=== PATIENT | female | born 1995 | race Two or more races ===

== ENCOUNTER 2017-12-19 20:51 | Outpatient (CLI) | payer OTHER, SELFPAY ==
[2017-12-19 21:50] LABS: APPEARANCE, URINE HAZY (CLEAR); BACTERIA, URINE AUTO NEGATIVE (NEGATIVE); BILIRUBIN, URINE AUTO NEGATIVE (NEGATIVE); BLOOD, URINE BLOOD 2+ (NEGATIVE); COLOR, URINE YELLOW (YELLOW); GLUCOSE, URINE (UA) AUTO NEGATIVE (NEGATIVE); KETONE, URINE AUTO NEGATIVE (NEGATIVE); LEUKOCYTE ESTERASE, URINE AUTO NEGATIVE (NEGATIVE); NITRITE, URINE AUTO NEGATIVE (NEGATIVE); PROTEIN, URINE AUTO NEGATIVE (NEGATIVE); RBC, URINE AUTO 180 /HPF (0-3); SPECIFIC GRAVITY URINE AUTO 1.015 (1.002-1.035); SQUAMOUS EPITHELIAL CELL UR AU 2 /HPF (0-6); UROBILINOGEN, URINE AUTO 0.2 mg/dL (0.0-2.0); WBC, URINE AUTO 2 /HPF (0-3)
[2017-12-19] MEDS: SODIUM CHLORIDE 0.9% 1000ML IV (22:45)
[2017-12-19] MEDS ORDERED: ceFAZolin 1GM INJ (J0690 PER 500MG) IV ×2 (22:45)
[2017-12-19] MEDS: SODIUM CHLORIDE 0.9% 1000 ML IV (22:45)
[2017-12-19] MEDS ORDERED: NS 1,000 ML IV ×2 (23:00)
[2017-12-19] MEDS ORDERED: ceFAZolin 2 GM/D5W 50 ML IV BAG (J0690 PER 500MG) As Ordered ×2 (23:41)
== END 2017-12-20 01:00 | disposition home or self-care (01) ==
LOC: M LDO 20:51
DX: O99.89 Other specified diseases and conditions complicating pregnancy, childbirth and the puerperium (principal); Z3A.36 36 weeks gestation of pregnancy; O23.43 Unspecified infection of urinary tract in pregnancy, third trimester; R31.9 Hematuria, unspecified
CPT/HCPCS: J0690

== ENCOUNTER 2017-12-21 19:17 | Outpatient (CLI) | payer OTHER, SELFPAY ==
[2017-12-21] MEDS: LR 1,000 ML IV (22:11)
[2017-12-21 22:27] LABS: HEMATOCRIT 33.9 % (36.0-47.0); HEMOGLOBIN 11.5 g/dl (12.0-15.5); MEAN CORPUSCULAR HEMOGLOBIN 30.2 pg (27.0-33.0); MEAN CORPUSCULAR HGB CONC 33.9 g/dl (32.0-36.5); PLATELET COUNT, AUTOMATED 255 10^3/uL (150-450); RED BLOOD COUNT 3.81 10^6/uL (4.00-5.40); RED CELL DISTRIBUTION WIDTH 13.2 % (11.5-14.5); WHITE BLOOD COUNT 9.8 10^3/uL (4.0-10.0)
[2017-12-21] MEDS: ONDANSETRON 4MG/2ML VIAL (J2405) IV (22:36)
[2017-12-21 22:53] LABS: ALBUMIN 2.6 GM/DL (3.2-5.2); ALBUMIN/GLOBULIN RATIO 0.67 (1.00-1.93); ALKALINE PHOSPHATASE 133 U/L (45-117); ALT/SGPT 14 U/L (12-78); ANION GAP 12 MEQ/L (8-16); AST/SGOT 13 U/L (7-37); BILIRUBIN,TOTAL 0.2 MG/DL (0.2-1.0); BLOOD UREA NITROGEN 10 MG/DL (7-18); CALCIUM LEVEL 8.2 MG/DL (8.5-10.1); CARBON DIOXIDE LEVEL 22 MEQ/L (21-32); CHLORIDE LEVEL 108 MEQ/L (98-107); CREATININE FOR GFR 0.53 MG/DL (0.55-1.30); GLOMERULAR FILTRATION RATE > 60.0 (>60); GLUCOSE, FASTING 84 MG/DL (70-100); POTASSIUM SERUM 4.5 MEQ/L (3.5-5.1); SODIUM LEVEL 142 MEQ/L (136-145); TOTAL PROTEIN 6.5 GM/DL (6.4-8.2)
== END 2017-12-22 00:37 | disposition home or self-care (01) ==
LOC: M LDO 19:17
DX: O26.893 Other specified pregnancy related conditions, third trimester (principal); M54.5 Low back pain; O21.9 Vomiting of pregnancy, unspecified; O26.833 Pregnancy related renal disease, third trimester; N13.30 Unspecified hydronephrosis; Z3A.36 36 weeks gestation of pregnancy
CPT/HCPCS: J2405

== ENCOUNTER 2018-01-30 14:46 | Inpatient (IN) | payer OTHER ==
[2018-01-30 15:34] LABS: KETONE, URINE AUTO RFX NEGATIVE (NEGATIVE); LEUKOCYTE ESTERASE UR AUTO RFX 3+ (NEGATIVE); NITRITE, URINE AUTO RFX POSITIVE (NEGATIVE); RBC, URINE AUTO RFX 31 /HPF (0-3); SPECIFIC GRAVITY UR AUTO RFX 1.014 (1.002-1.035); SQUAM EPITHELIAL CELL UR AURFX 2 /HPF (0-6); WBC, URINE AUTO RFX TNTC /HPF (0-3)
[2018-01-30] MEDS: ACETAMINOPHEN 325 MG TAB PO (17:08)
[2018-01-30] MEDS: NS 1,000 ML IV ×3 (17:21→22:55)
[2018-01-30] MEDS: ONDANSETRON 4MG/2ML VIAL (J2405) IV (17:21)
[2018-01-30 17:34] LABS: BASO # 0.1 10^3/uL (0.0-0.2); BASO % 0.3 % (0.0-1.0); HEMATOCRIT 33.7 % (36.0-47.0); HEMOGLOBIN 11.6 g/dl (12.0-15.5); IMMATURE GRANULOCYTE % 0.4 % (0-3.0); LYMPH # 2.4 10^3/uL (1.5-6.5); LYMPH % 11.7 % (24.0-44.0); MEAN CORPUSCULAR HEMOGLOBIN 29.8 pg (27.0-33.0); MEAN CORPUSCULAR HGB CONC 34.4 g/dl (32.0-36.5); MEAN CORPUSCULAR VOLUME 86.6 fl (80.0-96.0); MONO # 1.8 10^3/uL (0.0-0.8); NEUTROPHILS # 15.8 10^3/uL (1.8-7.7); NEUTROPHILS % 78.6 % (36.0-66.0); PLATELET COUNT, AUTOMATED 392 10^3/uL (150-450); RED BLOOD COUNT 3.89 10^6/uL (4.00-5.40); RED CELL DISTRIBUTION WIDTH 14.2 % (11.5-14.5); WHITE BLOOD COUNT 20.1 10^3/uL (4.0-10.0)
[2018-01-30 17:58] LABS: ALBUMIN 2.7 GM/DL (3.2-5.2); ALBUMIN/GLOBULIN RATIO 0.54 (1.00-1.93); ALKALINE PHOSPHATASE 116 U/L (45-117); ALT/SGPT 26 U/L (12-78); ANION GAP 11 MEQ/L (8-16); AST/SGOT 14 U/L (7-37); BILIRUBIN,TOTAL 0.5 MG/DL (0.2-1.0); BLOOD UREA NITROGEN 16 MG/DL (7-18); CALCIUM LEVEL 8.3 MG/DL (8.5-10.1); CARBON DIOXIDE LEVEL 21 MEQ/L (21-32); CHLORIDE LEVEL 107 MEQ/L (98-107); GLOMERULAR FILTRATION RATE > 60.0 (>60); GLUCOSE, FASTING 116 MG/DL (70-100); LIPASE 154 U/L (73-393); POTASSIUM SERUM 3.8 MEQ/L (3.5-5.1); SODIUM LEVEL 139 MEQ/L (136-145); TOTAL PROTEIN 7.7 GM/DL (6.4-8.2)
[2018-01-30 18:17] LABS: KETONE, URINE AUTO RFX NEGATIVE (NEGATIVE); MUCUS, URINE RFX SMALL (NEGATIVE); RBC, URINE AUTO RFX 17 /HPF (0-3); SPECIFIC GRAVITY UR AUTO RFX 1.014 (1.002-1.035); SQUAM EPITHELIAL CELL UR AURFX 0 /HPF (0-6)
[2018-01-30 18:21] LABS: LEUKOCYTE ESTERASE UR AUTO RFX 3+ (NEGATIVE); NITRITE, URINE AUTO RFX POSITIVE (NEGATIVE); WBC, URINE AUTO RFX TNTC /HPF (0-3)
[2018-01-30] MEDS ORDERED: ISOVUE-370 76% 100ML VIAL (Q9967) As Ordered (18:22)
[2018-01-30] MEDS: cefTRIAXone SOD 1 GM in D5W MINI-BAG PLUS 50 ML IV (20:12)
[2018-01-30] MEDS ORDERED: BISACODYL 5 MG TAB PO (21:15)
[2018-01-30] MEDS ORDERED: ONDANSETRON 4 MG TAB (S0181) PO (21:15)
[2018-01-30] MEDS ORDERED: BISACODYL 10 MG SUPP PR (21:15)
[2018-01-30] MEDS: ACETAMINOPHEN TAB 650MG DOSE (2X325MG) PO (23:04)
[2018-01-31] MEDS: NS 1,000 ML IV ×4 (04:15→16:02)
[2018-01-31] MEDS: HEPARIN SOD (PORCINE) 5000 UNITS/ML VIAL SC ×3 (05:52→21:48)
[2018-01-31 07:56] LABS: HEMATOCRIT 31.7 % (36.0-47.0); HEMOGLOBIN 10.6 g/dl (12.0-15.5); MEAN CORPUSCULAR HEMOGLOBIN 29.9 pg (27.0-33.0); MEAN CORPUSCULAR HGB CONC 33.4 g/dl (32.0-36.5); MEAN CORPUSCULAR VOLUME 89.3 fl (80.0-96.0); PLATELET COUNT, AUTOMATED 326 10^3/uL (150-450); RED BLOOD COUNT 3.55 10^6/uL (4.00-5.40); RED CELL DISTRIBUTION WIDTH 14.3 % (11.5-14.5); WHITE BLOOD COUNT 12.6 10^3/uL (4.0-10.0)
[2018-01-31 08:17] LABS: ANION GAP 8 MEQ/L (8-16); BLOOD UREA NITROGEN 11 MG/DL (7-18); CARBON DIOXIDE LEVEL 23 MEQ/L (21-32); CHLORIDE LEVEL 114 MEQ/L (98-107); CREATININE FOR GFR 0.82 MG/DL (0.55-1.30); GLOMERULAR FILTRATION RATE > 60.0 (>60); GLUCOSE, FASTING 101 MG/DL (70-100); SODIUM LEVEL 145 MEQ/L (136-145)
[2018-01-31] MEDS: ACETAMINOPHEN TAB 650MG DOSE (2X325MG) PO (13:08)
[2018-01-31] MEDS: TAMSULOSIN 0.4 MG CAP PO (17:23)
[2018-01-31] MEDS: cefTRIAXone SOD 1 GM in D5W MINI-BAG PLUS 50 ML IV (21:47)
[2018-02-01] MEDS: NS 1,000 ML IV (03:05)
[2018-02-01] MEDS: HEPARIN SOD (PORCINE) 5000 UNITS/ML VIAL SC (06:53)
[2018-02-01 08:00] LABS: HEMOGLOBIN 10.2 g/dl (12.0-15.5); MEAN CORPUSCULAR HEMOGLOBIN 29.3 pg (27.0-33.0); MEAN CORPUSCULAR HGB CONC 32.9 g/dl (32.0-36.5); MEAN CORPUSCULAR VOLUME 89.1 fl (80.0-96.0); PLATELET COUNT, AUTOMATED 333 10^3/uL (150-450); RED BLOOD COUNT 3.48 10^6/uL (4.00-5.40); RED CELL DISTRIBUTION WIDTH 14.3 % (11.5-14.5); WHITE BLOOD COUNT 8.6 10^3/uL (4.0-10.0)
[2018-02-01] MEDS: TAMSULOSIN 0.4 MG CAP PO (08:16)
[2018-02-01 08:19] LABS: ANION GAP 8 MEQ/L (8-16); BLOOD UREA NITROGEN 11 MG/DL (7-18); CALCIUM LEVEL 8.2 MG/DL (8.5-10.1); CARBON DIOXIDE LEVEL 23 MEQ/L (21-32); CHLORIDE LEVEL 114 MEQ/L (98-107); CREATININE FOR GFR 0.68 MG/DL (0.55-1.30); GLOMERULAR FILTRATION RATE > 60.0 (>60); GLUCOSE, FASTING 84 MG/DL (70-100); POTASSIUM SERUM 3.8 MEQ/L (3.5-5.1); SODIUM LEVEL 145 MEQ/L (136-145)
== END 2018-02-01 13:05 | disposition home or self-care (01) | DRG 776 ==
LOC: M ED 14:46 → M ED INP 21:05 → M PED 22:55
DX: O86.19 Other infection of genital tract following delivery (principal); N12 Tubulo-interstitial nephritis, not specified as acute or chronic; N13.6 Pyonephrosis; D64.9 Anemia, unspecified; B96.20 Unspecified Escherichia coli [E. coli] as the cause of diseases classified elsewhere; O99.03 Anemia complicating the puerperium

== ENCOUNTER 2018-11-17 20:00 | Emergency (ER) | payer OTHER ==
[~2018-11-17] VITALS: Ht 162.6 cm; Wt 71.9 kg
[~2018-11-17 20:00] MED LIST: CEFD1CAP8 PO; FLOM0.4C39 PO; IBUP-1114 PO; MAPA500T2 PO; NUPE1OIN2 TOP; PRENTAB9 PO
[2018-11-17 20:33] LABS: BASO % 0.4 % (0.0-1.0); EOS # 0.1 10^3/uL (0.0-0.50); EOS % 1.2 % (0.0-3.0); HEMATOCRIT 36.2 % (36.0-47.0); HEMOGLOBIN 12.2 g/dl (12.0-15.5); LYMPH # 3.1 10^3/uL (1.5-6.5); LYMPH % 38.4 % (24.0-44.0); MEAN CORPUSCULAR HEMOGLOBIN 29.2 pg (27.0-33.0); MEAN CORPUSCULAR HGB CONC 33.7 g/dl (32.0-36.5); MEAN CORPUSCULAR VOLUME 86.6 fl (80.0-96.0); MONO # 0.4 10^3/uL (0.0-0.8); MONO % 5.4 % (0.0-5.0); NEUTROPHILS # 4.4 10^3/uL (1.8-7.7); NEUTROPHILS % 54.4 % (36.0-66.0); PLATELET COUNT, AUTOMATED 304 10^3/uL (150-450); RED BLOOD COUNT 4.18 10^6/uL (4.00-5.40); WHITE BLOOD COUNT 8.1 10^3/uL (4.0-10.0)
[2018-11-17] MEDS ORDERED: KEFL500C17 PO (21:56)
[2018-11-17 21:59] VITALS: BP 113/53
[2018-11-17] MEDS ORDERED: CEPHALEXIN 500 MG CAP PO ONE (22:00)
--- NOTE | 2018-11-17 22:37 | REPVR ---
EXAM: US First Trimester, Transabdominal EXAM DATE/TIME: 11/17/2018 9:08 PM CLINICAL HISTORY: 23 years old, female; Signs and symptoms; Lmp or gestational age (in weeks): Lmp 09/29/18; Antepartum complications; Bleeding; ; Additional info: Vaginal bleeding TECHNIQUE: Imaging protocol: Real-time transabdominal obstetrical ultrasound of the maternal pelvis and a first trimester , less than 14 weeks 0 days, with image documentation. COMPARISON: No relevant prior studies available. FINDINGS: GESTATION: Gestation: Gestational sac within the uterus which contains a yolk sac and pole. Heart rate: heartbeat of 122 beats per minute. Placenta: No subchorionic bleed. BIOMETRY: [place]-Rump length: The crown-rump length is 6 mm suggesting an age of 6 weeks 3 days. The EDC is 07/10/2019. MATERNAL: Uterus: Unremarkable. Cervix: Unremarkable. Right adnexa: The right ovary measures 2.9 x 1.6 x 2.8 cm and demonstrates blood flow. Left adnexa: The left ovary measures 5.3 x 3.1 x 3.8 cm and demonstrates blood flow. Intraperitoneal: No intraperitoneal free fluid. IMPRESSION: Single live intrauterine gestation with an estimated age of 6 weeks 3 days. The EDC is 07/10/2019. Electronically signed by: Huy Hernández On 11/17/2018 22:37:30 PM
== END 2018-11-17 22:12 | disposition home or self-care (01) ==
LOC: M ED 20:00
DX: O23.41 Unspecified infection of urinary tract in pregnancy, first trimester (principal); Z3A.01 Less than 8 weeks gestation of pregnancy; Z86.19 Personal history of other infectious and parasitic diseases; Z87.440 Personal history of urinary (tract) infections; Z87.448 Personal history of other diseases of urinary system

== ENCOUNTER 2019-07-07 13:24 | Outpatient (CLI) | payer OTHER ==
[~2019-07-07] VITALS: Ht 162.6 cm; Wt 86.4 kg
[~2019-07-07 13:24] MED LIST changes: +KEFL500C17 PO
[2019-07-07 13:51] VITALS: BP 125/57
[2019-07-07 15:53] LABS: HEMATOCRIT 35.7 % (36.0-47.0); HEMOGLOBIN 11.6 g/dl (12.0-15.5); MEAN CORPUSCULAR HEMOGLOBIN 29.1 pg (27.0-33.0); MEAN CORPUSCULAR HGB CONC 32.5 g/dl (32.0-36.5); MEAN CORPUSCULAR VOLUME 89.7 fl (80.0-96.0); PLATELET COUNT, AUTOMATED 235 10^3/uL (150-450); RED BLOOD COUNT 3.98 10^6/uL (4.00-5.40); WHITE BLOOD COUNT 8.3 10^3/uL (4.0-10.0)
[2019-07-07 17:58] VITALS: BP 127/63
--- NOTE | 2019-07-08 12:27 | IPN ---
DATE OF SERVICE: 07/07/2019 This lady is a 23-year-old 2, para 1, last menstrual period (LMP)2018, estimated date of confinement (EDC) 07/06/2019, at 41 weeks of gestation with a history of diving on her bed, falling on her abdomen. No loss of fluid or vaginal discharge. No pain. Risk factors is a short interval and she is GBS positive. PAST HISTORY: January 2018 at weeks induction of labor, delivered a live female infant 7 pounds 14 ounces. Presently her blood pressure 125/57, respirations 18, pulse 75, temperature 98.2, hemoglobin 11.6, hematocrit 35.7 and platelets are 235. Kleihauer Betke was negative. Urine was 1.010, pH was 6 and everything was negative. Her lab values are she is O+, HIV negative, hep negative, RPR negative, rubella immune. Pap normal. Urine and GBS positive. Varicella was equivocal. Gonorrhea and chlamydia are negative and her 1-hour glucose was 99. On examination no acute distress. Symphysis fundus height is 40, vertex presenting. Category 1 strip with no contractions. No vaginal fluid loss. She had an ultrasound which showed her ROSALIA in three quadrants 10.4. Four limb movement. Then, vertex presenting. She has a booked induction of labor on July 10, 2019. Precautions were given and the patient was discharged undelivered to followup in the appropriate interval.
[2019-07-08] MEDS ORDERED: PRENTAB9 PO (14:12)
[2019-07-08] MEDS ORDERED: MAPA500T2 PO (14:12)
== END 2019-07-07 17:58 | disposition home or self-care (01) ==
LOC: M LDO 13:24
PROVIDERS: ATTEND Obstetrics & Gynecology
DX: O48.0 Post-term pregnancy (principal); O26.893 Other specified pregnancy related conditions, third trimester; Z3A.41 41 weeks gestation of pregnancy; O99.820 Streptococcus B carrier state complicating pregnancy
CPT/HCPCS: 36415; 59025; 85027; 85460; G0378; G0463

== ENCOUNTER 2019-07-08 13:28 | Inpatient (IN) | payer OTHER ==
[2019-07-08] VITALS (18 sets, daily range): BP systolic 95–131; BP diastolic 51–70
[~2019-07-08] VITALS: Ht 162.6 cm; Wt 87.2 kg
[2019-07-08] MEDS ORDERED: PRENTAB9 PO (14:12)
[2019-07-08] MEDS ORDERED: MAPA500T2 PO (14:12)
[2019-07-08] MEDS ORDERED: LR 1,000 ML IV SCH (14:51)
[2019-07-08] MEDS ORDERED: LACTATED RINGER'S 1000 ML IV STA (14:51)
[2019-07-08] MEDS ORDERED: PENICILLIN G POTASSIUM IV 5 MU in D5W MINI-BAG PLUS 100 ML IV STA (14:51)
[2019-07-08] MEDS ORDERED: OXYTOCIN DRIP 30 UNITS in IV 1 EA IV SCH ×2 (15:00→23:09)
[2019-07-08 15:43] LABS: BASO % 0.2 % (0.0-1.0); EOS # 0.1 10^3/uL (0.0-0.5); EOS % 0.8 % (0.0-3.0); HEMOGLOBIN 11.7 g/dl (12.0-15.5); LYMPH # 1.9 10^3/uL (1.5-5.0); LYMPH % 21.1 % (24.0-44.0); MEAN CORPUSCULAR HEMOGLOBIN 29.1 pg (27.0-33.0); MEAN CORPUSCULAR HGB CONC 32.5 g/dl (32.0-36.5); MEAN CORPUSCULAR VOLUME 89.6 fl (80.0-96.0); MONO # 0.6 10^3/uL (0.0-0.8); MONO % 7.1 % (0.0-5.0); NEUTROPHILS # 6.2 10^3/uL (1.5-8.5); NEUTROPHILS % 70.2 % (36.0-66.0); PLATELET COUNT, AUTOMATED 226 10^3/uL (150-450); RED BLOOD COUNT 4.02 10^6/uL (4.00-5.40); WHITE BLOOD COUNT 8.9 10^3/uL (4.0-10.0)
--- NOTE | 2019-07-08 17:27 | HPEPDOC ---
Obstetrical History & Physical General Date of Admission Jul 08, 2019 at 14:49 History of Present Illness 23yo at 40.2wks by LMP c/w 12wk US with c/o SROM. States she had large gush of clear fluid around 10am today. No blood or discharge. Since,s he has had mild leakage of fluid. Good movement. No contractions. Chief Complaint: LOF, term, Group B Positive, Rupture of membranes Information Provided By: Patient Care Care: Good Care Dating Final EDC: Jul 06, 2019 Final EDC by: LMP Antepartum Course Diagnos(e)s SROM Height (inches): 64 Pre- weight (lbs.): 157 Admission Weight (lbs.): 188 Change in Weight (lbs.): 31 Past Medical History Past Obstetrical History : Past Obstetrical History: Multigravida (x1 in 2018 around 7lbs c/b chorio without sequelae) [employer] History: History of STD (Chlamydia 2016) Past Medical History Surgical History: Denies/None Family History Significant Family History: Noncontributory Social History Marital Status: Family situation: Spouse/partner home Psychosocial History: No pertinent psych hx * Smoker: non-smoker Alcohol: Denies Drugs: denies Imunizations Tdap status: current Influenza Status: current Allergies Coded Allergies: No Known Allergies (Unverified , 12/20/17) Medications Scheduled No.137/Iron/Folic Acd ( Vitamin Tablet) 1 Each Tablet, 1 TAB PO DAILY Scheduled PRN Acetaminophen (Mapap) 500 Mg Tablet, 650 MG PO Q4HP PRN for DISCOMFORT Physical Examination Physical Examination GENERAL: Alert and oriented times three. ABDOMEN: Gravid and non-tender to touch. FETUS: Is vertex (VTX) by sterile vaginal examination (SVE) 3/80/-3, fetus is vertex (VTX) by SVE. EXTREMITIES: No edema Vital Signs/I&O Vital Signs Date Time Temp Pulse Resp B/P (MAP) Pulse Ox O2 Delivery O2 Flow Rate FiO2 07/08/19 13:53 97.9 98 16 116/67 (83) 98 Room Air 97.9 Laboratory Data 24H LABS Laboratory Tests 2 07/08/19 14:52: Serology Scanned Report Hepatitis B Testing 07/08/19 15:25: Immature Granulocyte % (Auto) 0.6, Neutrophils (%) (Auto) 70.2H, Lymphocytes (%) (Auto) 21.1L, Monocytes (%) (Auto) 7.1H, Eosinophils (%) (Auto) 0.8, Basophils (%) (Auto) 0.2, Neutrophils # (Auto) 6.2, Lymphocytes # (Auto) 1.9, Monocytes # (Auto) 0.6, Eosinophils # (Auto) 0.1, Basophils # (Auto) 0.0, Nucleated Red Blood Cells % (auto) 0.0 CBC/BMP Laboratory Tests 07/08/19 15:25 Pertinent Laboratoy Data Blood Type: O+ RBC Antibody Screen: Negative HIV: Negative Hepatitis B: Negative Hepatitis C: Negative Rapid Plasma Reagin: Nonreactive Rubella: Immune Varicella: Immune (equivocal) Chlamydia/Gonorrhea: Negative Group B Streptococcus: Positive Quad Screen Test: Negative (mat 21 neg, XY) Glucose Tolerance Test: 99 Anatomy Ultrasound Ultrasound Date: Apr 10, 2019 Placenta Location: Anterior Normal Anatomy: Yes Placenta Previa: No Steroid Therapy Steroid Therapy: No Assessment Heart Rate (FHR): 140 Variability: Moderate Accelerations: Positive Decelerations: None Tocometer Contractions: No Multi-drug resistant Organism: No history of MDRO Assessment/Plan Assessment 23yo at 40.2wks by LMP c/w 12wk US with c/o SROM. GBS positive. Fetus reassuring. Pain controlled due to not violeta. Good candidate for . No further risk factors. 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 Diet: regular once then clears. Group B Streptococcus (GBS) positive and will need PCN per protocol. Labs and intravenous (IV) per unit protocol. Counseled on Pitocin and induction of labor (IOL). Lactated Ringers (LR): Bolus 500 mL, then at 125 mL/hr. Anticipate normal spontaneous delivery (). Pain control per patient desires, expect IV medication then epidural. Pitocin augmentation due to lack of contractions at this time. Vesta Oneal MD Jul 08, 2019 17:27
[2019-07-08] MEDS ORDERED: PROMETHAZINE INJ 25 MG/ML VIAL (J2550) IV ONE (17:30)
[2019-07-08] MEDS ORDERED: BUTORPHANOL 2 MG/ML INJ (J0595) IV PRN (17:30)
[2019-07-08] MEDS ORDERED: FENTANYL 2MCG/ML ROPIVACAINE 0.2% IN 0.9% NACL 100ML IVBAG As Ordered ONE (19:45)
[2019-07-08] MEDS ORDERED: FENTANYL/ROPIVACAINE/NACL BAG 100 ML EPIDURAL SCH (20:00)
[2019-07-08] MEDS ORDERED: REFRIGERATOR IV KEYS XX PRN (20:00)
[2019-07-08] MEDS ORDERED: EPIDURAL COMMENT XX SCH (20:00)
[2019-07-08] MEDS ORDERED: EPIDURAL/PCA KEYS XX PRN (20:00)
[2019-07-08] MEDS ORDERED: diphenhydrAMINE INJ 50MG/ML VIAL (J1200) IV PRN (20:00)
[2019-07-08] MEDS ORDERED: PENICILLIN G POTASSIUM IV 2.5 MU in IV 1 EA IV SCH (20:00)
[2019-07-08] MEDS ORDERED: ePHEDrine SULFATE 25 MG/5 ML(5MG/ML) SYRINGE IV PRN (20:00)
[2019-07-08] MEDS ORDERED: ONDANSETRON 4MG/2ML VIAL (J2405) IV PRN (20:00)
[2019-07-08] MEDS ORDERED: NALOXONE INJ 0.4 MG/1 ML VIAL (J2310) IV PRN (20:00)
[2019-07-08] MEDS ORDERED: ACETAMINOPHEN TAB 650MG DOSE (2X325MG) PO PRN (23:15)
[2019-07-08] MEDS ORDERED: MEASLES,MUMPS,RUBELLA VACCINE INJ (MMR-II) (90707) SC SCH (23:15)
[2019-07-08] MEDS ORDERED: RHOGAM 300 MCG (1500 IU) INJ (J2790) IM SCH (23:15)
[2019-07-08] MEDS ORDERED: DIBUCAINE 1% OINTMENT 30GM TOP PRN (23:15)
[2019-07-08] MEDS ORDERED: ACETAMINOPHEN 500 MG TAB PO PRN (23:15)
[2019-07-08] MEDS ORDERED: DOCUSATE SODIUM 100 MG CAP PO PRN (23:15)
[2019-07-08] MEDS ORDERED: IBUPROFEN 600 MG TAB PO PRN (23:15)
--- NOTE | 2019-07-08 23:16 | DNPDOC ---
[facility] Delivery Note Delivery Note DATE OF DELIVERY: 08 July 2019 PREDELIVERY DIAGNOSIS: 40w2d pre-labor rupture of membranes POST DELIVERY DIAGNOSIS: Delivered. PROCEDURE: Spontaneous vaginal delivery PORT STEWARD: Dr. Vandana Tovar MD ANESTHESIA: epidural ESTIMATED BLOOD LOSS: 200 mL. FINDINGS: 8 pound 12 ounce (3960g) male infant, Score 8/8 DELIVERY SUMMARY: Jaelyn is a 23yo [id number] s/p uncomplicated at 2249 on 07/08/2019 after presenting with pre-labor rupture of membranes at 40w2d. She progressed with pitocin augmentation, received PCN for GBS positive, received an epidural, and advanced to C/C/0 at which point she began pushing. Infant's head delivered OA, restituted CHELY. Left compound hand noted. Right anterior shoulder delivered followed by posterior shoulder and corpus. Infant was vigorous with spontaneous cry, placed on maternal abdomen and cord was clamped x2 and cut by FOB after approximately 2 minutes. 's nose and mouth were suctioned with bulb suction. Apgars 8/8. Cord blood obtained for MBT O pos. With traction on the umbilical cord and uterine massage, placenta delivered spontaneously and intact with 3 vessel centrally inserted cord. More uterine massage was performed and fundus was then firm at u-2cm. Inspection of perineum and vagina revealed superficial eduardo at the entrance of the vagina at 6 o'clock, repaired with figure of 8 using 4-0 vicryl with complete hemostasis and reapproximation. All counts correct x2. Mom and infant were doing well when I left the room. MD Guy Morales Katrina D MD Jul 08, 2019 23:16
[2019-07-09 00:03] VITALS: BP 108/55
[2019-07-09 01:03] VITALS: BP_SYST 118; BP_SYST 123; BP_DIAS 59; BP_DIAS 60
[2019-07-09] MEDS: IBUPROFEN 800 MG TAB PO PRN (05:11)
[2019-07-09 05:46] VITALS: BP 112/65
--- NOTE | 2019-07-09 08:04 | IPNPDOC ---
Progress Note Date of Service: Jul 09, 2019 Day#: 1 Progress Note PPD 1 SUBJECT: Jaelyn is a 23yo [id number] s/p uncomplicated at 2249 on 07/08/2019 after presenting with pre-labor rupture of membranes at 40w2d, doing well day # 1 after delivering late last night. She has been ambulating, voiding spontaneously without issue and tolerating regular diet. Breast feeding without issue. Reports lochia is like a heavy period. No f/c/n/v/CP/SOB. OBJECTIVE: VITAL SIGNS: Within normal limits, afebrile. Alert and oriented times three. Abdomen: Fundus firm at U-2. Soft, NTTP. Extremities: no edema of BLE ASSESSMENT: Jaelyn is a 23yo [id number] s/p uncomplicated at 2249 on 07/08/2019 after presenting with pre-labor rupture of membranes at 40w2d, doing well day # 1 after delivering late last night. Vitals within normal limits, afebrile, hemodynamically stable with no evidence of infection. PLAN: 1. Routine care 2. Tylenol and Motrin for pain. 3. Encourage breast feeding and ambulation. 4. Unsure about contraception, will discuss at PP visit 5. Regular diet 6. Possible d/c tomorrow if meeting all milestones Dr. Vandana Tovar MD VS, I&O, 24H, [facility] Vital Signs/I&O Vital Signs Date Time Temp Pulse Resp B/P (MAP) Pulse Ox O2 Delivery O2 Flow Rate FiO2 07/09/19 05:46 99.0 74 18 112/65 (81) 98 Room Air 99.0 I&O- Last 24 Hours up to 6 AM 07/09/19 05:59 Intake Total 1324 ml Output Total 1050 ml Balance 274 ml Laboratory Data 24H LABS Laboratory Tests 2 07/08/19 14:52: Serology Scanned Report Hepatitis B Testing 07/08/19 15:25: Immature Granulocyte % (Auto) 0.6, Neutrophils (%) (Auto) 70.2H, Lymphocytes (%) (Auto) 21.1L, Monocytes (%) (Auto) 7.1H, Eosinophils (%) (Auto) 0.8, Basophils (%) (Auto) 0.2, Neutrophils # (Auto) 6.2, Lymphocytes # (Auto) 1.9, Monocytes # (Auto) 0.6, Eosinophils # (Auto) 0.1, Basophils # (Auto) 0.0, Nucleated Red Bl ood Cells % (auto) 0.0 CBC/BMP Laboratory Tests 07/08/19 15:25 Vandana Tovar MD Jul 09, 2019 08:04
[2019-07-09] MEDS: PRENATAL VITAMINS CHEWABLE TABLET PO SCH (09:57)
[2019-07-09 17:54] VITALS: BP 120/64
[2019-07-10] MEDS: IBUPROFEN 800 MG TAB PO PRN ×2 (01:54→11:07)
[2019-07-10 05:53] VITALS: BP 104/57
[2019-07-10] MEDS ORDERED: IBUP80TA PO (07:27)
[2019-07-10] MEDS ORDERED: DOCU100C16 PO (07:27)
[2019-07-10] MEDS ORDERED: DIBU10OI TOP (07:27)
[2019-07-10] MEDS: PRENATAL VITAMINS CHEWABLE TABLET PO SCH (11:06)
--- NOTE | 2019-07-10 18:02 | DSES ---
DATE OF ADMISSION: 07/08/2019 DATE OF DISCHARGE: 07/10/2019 This lady is a 23-year-old 2, now para 2 who was admitted with spontaneous rupture of membranes at 40 and 2 weeks of gestation. GBS positive. She had an epidural in place, delivered a live male infant, 8 pounds 12 ounces, 3960 grams, scores of 8 and 8 at one and five minutes respectively. On her second day, we discussed phlebitis, cystitis, mastitis, endometritis, cellulitis, diet, exercise, pain management, perineal and breast care. She has been dispensed her meds at home. She has a 6 week checkup with [facility] ([facility]). Admitting hemoglobin was 11.7, hematocrit 36.0 and platelets were 226. Her vital signs on discharge: Her blood pressure was 104/57, respirations 18, pulse 62, temperature is 97.7. In summary, we have a term gestation, delivered a live male infant. Discharge plan for today: Followup 6 weeks at OB clinic and in 48 hours for baby at the [facility]. 20 minute to 30 minute discussion. All questions were answered. The patient expressed understanding. Discharged improved.
== END 2019-07-10 12:50 | disposition home or self-care (01) | DRG 807 ==
LOC: M LDO 13:28 → M LDI 14:49 → M OBS 07-09 00:50
PROVIDERS: ADMIT Obstetrics & Gynecology; ATTEND Obstetrics & Gynecology
PROC: 10E0XZZ Delivery of Products of Conception, External Approach (ICD-10-PCS; principal; 2019-07-08)
DX: O42.02 Full-term premature rupture of membranes, onset of labor within 24 hours of rupture (principal); Z37.0 Single live birth; Z3A.40 40 weeks gestation of pregnancy; O99.824 Streptococcus B carrier state complicating childbirth; O48.0 Post-term pregnancy; O32.6XX0 Maternal care for compound presentation, not applicable or unspecified

== ENCOUNTER → 2020-02-06 | Outpatient (REF) | payer OTHER ==
[~2020-02-06] MED LIST changes: +DIBU10OI TOP; +DOCU100C16 PO; +IBUP80TA PO
== END ==
LOC: M SFHCLUC 17:59
PROVIDERS: ATTEND Physician Assistant
DX: R30.0 Dysuria (principal)